=== PATIENT | female | born 1945 | race Native Hawaiian/Other Pacific Islander ===

== ENCOUNTER 2016-08-20 09:18 | Observation (INO) | payer OTHER ==
[~2016-08-20] VITALS: Ht 157.5 cm; Wt 84.5 kg
[2016-08-20] VITALS (11 sets, daily range): BP systolic 112–239; BP diastolic 55–126; TEMP 97.4–98; Ht 157.5 cm; Wt 84.5 kg
[2016-08-20 10:55] LABS: PLATELET COUNT 195 K/uL (152-353)
[2016-08-20 10:57] LABS: POTASSIUM 3.6 mmol/L (3.6-5.2); SODIUM 136 mmol/L (136-145)
[2016-08-20 11:06] LABS: PARTIAL THROMBOPLASTIN TIME 23.9 SECONDS (24.5-33.6)
[2016-08-20] MEDS ORDERED: HYDR25TA60 PO (17:02)
[2016-08-20] MEDS ORDERED: LOPRESSOR100 MG PO (17:02)
[2016-08-20] MEDS ORDERED: LEVO0.1T6 PO (17:02)
[2016-08-20] MEDS ORDERED: METFORMIN HCL500 M1 PO (17:03)
[2016-08-21] VITALS: BP 138/65; TEMP 97.6
[2016-08-21 01:36] LABS: PLATELET COUNT 158 K/uL (152-353)
[2016-08-21 02:02] LABS: POTASSIUM 3.6 mmol/L (3.6-5.2); SODIUM 141 mmol/L (136-145)
[2016-08-21 04:00] VITALS: BP 118/62; TEMP 97.6
[2016-08-21 08:00] VITALS: BP 170/82; TEMP 98
[2016-08-21 12:00] VITALS: BP 168/87; TEMP 98.2
== END 2016-08-21 17:11 | disposition short-term general hospital (02) ==
LOC: ED 09:18 → MED/SURG 11:15
PROVIDERS: Emergency Medicine
DX: I16.0 Hypertensive urgency (principal); R07.89 Other chest pain; E03.8 Other specified hypothyroidism; E11.9 Type 2 diabetes mellitus without complications
CPT/HCPCS: 36415; 80053; 81000; 82550; 82607; 82747; 82948; 83735; 84439; 84443; 84484; 85027; 85610; 85730; 86318; 93005; 93306; 96360; 96372; 99220; 99284; G0378; J1650; J3475

== ENCOUNTER 2017-04-23 08:49 | Outpatient (CLI) | payer OTHER ==
[~2017-04-23 08:49] MED LIST: HYDR25TA60 PO; LEVO0.1T6 PO; LOPRESSOR100 MG PO; METFORMIN HCL500 M1 PO
== END 2017-04-23 20:04 | disposition home or self-care (01) ==
LOC: MAMMO 08:49
DX: Z12.31 Encounter for screening mammogram for malignant neoplasm of breast (principal)

== ENCOUNTER 2017-05-29 14:23 | Outpatient (CLI) | payer OTHER ==
[2017-05-29 14:44] LABS: PLATELET COUNT 199 K/uL (152-353)
[2017-05-29 14:54] LABS: POTASSIUM 3.6 mmol/L (3.6-5.2)
== END 2017-05-30 14:23 | disposition home or self-care (01) ==
LOC: LAB 14:23
PROVIDERS: Nurse Practitioner Family
DX: I10 Essential (primary) hypertension (principal); E03.8 Other specified hypothyroidism; E11.9 Type 2 diabetes mellitus without complications; R53.83 Other fatigue
CPT/HCPCS: 80053; 80061; 82306; 82607; 83036; 84439; 84443; 85027

== ENCOUNTER 2018-07-08 08:36 | Outpatient (CLI) | payer OTHER | END 2018-07-08 20:14 | disposition home or self-care (01) | LOC: MAMMO 08:36 | DX: Z12.31 Encounter for screening mammogram for malignant neoplasm of breast (principal) ==

== ENCOUNTER 2018-09-30 08:29 | Outpatient (CLI) | payer OTHER ==
[2018-09-30 08:50] LABS: PLATELET COUNT 200 K/uL (152-353)
[2018-09-30 08:58] LABS: POTASSIUM 4.1 mmol/L (3.6-5.2)
== END 2018-09-30 23:24 | disposition home or self-care (01) ==
LOC: LABW 08:29 → CT 08:29
PROVIDERS: Nurse Practitioner Family
DX: R10.32 Left lower quadrant pain (principal)
CPT/HCPCS: 36415; 80053; 82150; 83690; 85027

== ENCOUNTER 2018-10-01 10:41 | Outpatient (CLI) | payer OTHER | END 2018-10-01 23:48 | disposition home or self-care (01) | LOC: US 10:41 | DX: R10.32 Left lower quadrant pain (principal) ==

== ENCOUNTER 2018-10-21 09:58 | Observation (INO) | payer OTHER ==
[2018-10-21] VITALS (8 sets, daily range): BP systolic 162–211; BP diastolic 72–99; TEMP 97.7–98.1; Ht 154.9 cm; Wt 82.8 kg
[~2018-10-21] VITALS: Ht 154.9 cm; Wt 82.8 kg
[2018-10-21 10:49] LABS: PLATELET COUNT 204 K/uL (152-353)
[2018-10-21 11:04] LABS: POTASSIUM 3.7 mmol/L (3.6-5.2); SODIUM 136 mmol/L (136-145)
[2018-10-21 11:52] LABS: PARTIAL THROMBOPLASTIN TIME 23.4 SECONDS (24.5-33.6)
[2018-10-21] MEDS ORDERED: COZAAR25 MG PO (11:54)
[2018-10-21] MEDS ORDERED: HYDR25TA60 PO (11:55)
[2018-10-21] MEDS ORDERED: GLIM2TAB PO (11:55)
[2018-10-21] MEDS ORDERED: KAPSPARGO SPRI100 MG PO (11:55)
--- NOTE | 2018-10-21 21:04 | NUR ---
10/21/18 AT 2020: KELSIE DEASIS BED COORDINATER AT [facility] IN [facility]. CALLED HERE AND STATED " NO BED WAS AVAILABLE IN NEURO DEPARTMENT AND WOULD CALL BACK IF ANY BECOME AVAILABLE." DR Dev ARAMBULA NOTIFIED OF SAME.
== END 2018-10-21 22:15 | disposition short-term general hospital (02) ==
LOC: ED 09:58 → MED/SURG 13:50
PROVIDERS: Family Medicine; ADMIT Family Medicine
DX: I63.59 Cerebral infarction due to unspecified occlusion or stenosis of other cerebral artery (principal); I10 Essential (primary) hypertension; E11.9 Type 2 diabetes mellitus without complications; E78.00 Pure hypercholesterolemia, unspecified; E86.0 Dehydration; E03.8 Other specified hypothyroidism; Z86.73 Personal history of transient ischemic attack (TIA), and cerebral infarction without residual deficits
CPT/HCPCS: 36415; 80053; 81000; 82550; 82553; 83036; 84484; 85027; 85610; 85730; 93005; 93306; 99220; 99284; G0378; J2060

== ENCOUNTER 2018-10-21 22:22 | Outpatient (CLI) | payer OTHER ==
[~2018-10-21 22:22] MED LIST changes: +COZAAR25 MG PO; +GLIM2TAB PO; +KAPSPARGO SPRI100 MG PO
== END 2018-10-21 23:31 | disposition short-term general hospital (02) ==
LOC: AMB 22:22
DX: R51 Headache (principal); I63.89 Other cerebral infarction; I69.854 Hemiplegia and hemiparesis following other cerebrovascular disease affecting left non-dominant side
CPT/HCPCS: A0425; A0429

== ENCOUNTER 2018-11-07 17:04 | Outpatient (CLI) | payer OTHER ==
[2018-11-07 18:38] LABS: PLATELET COUNT 256 K/uL (152-353)
[2018-11-07 19:05] LABS: POTASSIUM 3.3 mmol/L (3.6-5.2)
== END 2018-11-07 21:03 | disposition home or self-care (01) ==
LOC: LAB 17:04
PROVIDERS: Internal Medicine
DX: N28.89 Other specified disorders of kidney and ureter (principal)
CPT/HCPCS: 80053; 81000; 85027

== ENCOUNTER 2019-03-25 10:13 | Emergency (ER) | payer OTHER ==
[~2019-03-25] VITALS: Ht 157.5 cm; Wt 73.9 kg
[2019-03-25 10:54] LABS: PLATELET COUNT 180 K/uL (152-353)
[2019-03-25 10:59] LABS: POTASSIUM 3.3 mmol/L (3.6-5.2)
[2019-03-25 13:00] VITALS: BP 157/74; TEMP 97.7
== END 2019-03-25 13:00 | disposition home or self-care (01) ==
LOC: ED 10:13
PROVIDERS: Emergency Medicine
DX: J11.1 Influenza due to unidentified influenza virus with other respiratory manifestations (principal); E86.0 Dehydration; I48.91 Unspecified atrial fibrillation
CPT/HCPCS: 36415; 80053; 85027; 87502; 87651; 93005; 96360; 99284

== ENCOUNTER 2020-05-05 11:19 | Outpatient (CLI) | payer OTHER ==
[2020-05-05 12:24] LABS: PLATELET COUNT 232 K/uL (152-353)
[2020-05-05 14:12] LABS: POTASSIUM 3.5 mmol/L (3.6-5.2)
== END 2020-05-05 21:14 | disposition home or self-care (01) ==
LOC: LABW 11:19
PROVIDERS: ATTEND Nurse Practitioner Family
DX: R10.13 Epigastric pain (principal); R10.816 Epigastric abdominal tenderness; R63.0 Anorexia
CPT/HCPCS: 36415; 80053; 82150; 83690; 85027; 86677

== ENCOUNTER 2020-06-30 11:00 | Outpatient (CLI) | payer OTHER | END 2020-06-30 21:13 | disposition home or self-care (01) | LOC: CT 11:00 | PROVIDERS: ATTEND Nurse Practitioner Family | DX: E03.8 Other specified hypothyroidism (principal); E11.9 Type 2 diabetes mellitus without complications; E78.49 Other hyperlipidemia; I10 Essential (primary) hypertension; R53.1 Weakness ==

== ENCOUNTER 2020-08-09 07:49 | Outpatient (CLI) | payer OTHER | END 2020-08-09 22:02 | disposition home or self-care (01) | LOC: US 07:49 | PROVIDERS: ATTEND Nurse Practitioner Family | DX: E04.1 Nontoxic single thyroid nodule (principal) ==

== ENCOUNTER 2020-08-29 08:19 | Outpatient (CLI) | payer OTHER | END 2020-08-29 19:53 | disposition home or self-care (01) | LOC: LABW 08:19 | PROVIDERS: ATTEND Specialist | DX: I63.9 Cerebral infarction, unspecified (principal) | CPT/HCPCS: 36415; 81241; 83090; 85210; 85240; 85302; 85306; 85652; 86038; 86147 ==

== ENCOUNTER 2020-09-26 09:10 | Outpatient (CLI) | payer OTHER | END 2020-09-26 21:22 | disposition home or self-care (01) | LOC: MRI 09:10 | PROVIDERS: ATTEND Specialist | DX: G45.1 Carotid artery syndrome (hemispheric) (principal); I63.9 Cerebral infarction, unspecified | CPT/HCPCS: 36415; 82565; 84520; A9576 ==

== ENCOUNTER 2020-09-27 08:50 | Outpatient (CLI) | payer OTHER | END 2020-09-27 21:51 | disposition home or self-care (01) | LOC: MRI 08:50 | PROVIDERS: ATTEND Specialist | DX: G45.1 Carotid artery syndrome (hemispheric) (principal); I63.9 Cerebral infarction, unspecified ==

== ENCOUNTER 2020-10-25 08:24 | Emergency (ER) | payer OTHER ==
[~2020-10-25] VITALS: Ht 157.5 cm; Wt 73.9 kg
[2020-10-25 08:24] VITALS: TEMP 98
[2020-10-25 08:50] LABS: PLATELET COUNT 176 K/uL (152-353)
[2020-10-25 08:57] LABS: POTASSIUM 3.3 mmol/L (3.6-5.2)
[2020-10-25 09:06] LABS: PARTIAL THROMBOPLASTIN TIME 27.4 SECONDS (24.5-33.6)
[2020-10-25 10:57] VITALS: BP 166/71
== END 2020-10-25 10:57 | disposition home or self-care (01) ==
LOC: ED 08:24
PROVIDERS: Hospitalist
DX: S39.012A Strain of muscle, fascia and tendon of lower back, initial encounter (principal); Z86.73 Personal history of transient ischemic attack (TIA), and cerebral infarction without residual deficits; W01.0XXA Fall on same level from slipping, tripping and stumbling without subsequent striking against object, initial encounter; Y92.098 Other place in other non-institutional residence as the place of occurrence of the external cause
CPT/HCPCS: 80048; 85027; 85610; 85730; 96374; 99284; J1885; Q9963

== ENCOUNTER 2020-11-23 07:38 | Outpatient (CLI) | payer OTHER ==
[2020-11-23 08:07] LABS: PLATELET COUNT 302 K/uL (152-353)
[2020-11-23 08:15] LABS: POTASSIUM 3.7 mmol/L (3.6-5.2)
[2020-11-23 08:34] LABS: PARTIAL THROMBOPLASTIN TIME 24.1 SECONDS (24.5-33.6)
== END 2020-11-23 20:33 | disposition home or self-care (01) ==
LOC: LABW 07:38
PROVIDERS: ATTEND Neurological Surgery
DX: I65.02 Occlusion and stenosis of left vertebral artery (principal); D68.8 Other specified coagulation defects
CPT/HCPCS: 36415; 80053; 85027; 85610; 85730

== ENCOUNTER 2021-01-05 09:24 | Outpatient (CLI) | payer OTHER ==
[2021-01-05 09:59] LABS: PLATELET COUNT 269 K/uL (152-353)
== END 2021-01-05 18:54 | disposition home or self-care (01) ==
LOC: LABW 09:24
PROVIDERS: ATTEND Nurse Practitioner
DX: I10 Essential (primary) hypertension (principal); E11.8 Type 2 diabetes mellitus with unspecified complications; R10.84 Generalized abdominal pain; E78.49 Other hyperlipidemia; E03.8 Other specified hypothyroidism; E66.9 Obesity, unspecified; E55.9 Vitamin D deficiency, unspecified; R53.1 Weakness
CPT/HCPCS: 36415; 80053; 80061; 81000; 82330; 83036; 83735; 83970; 84100; 84439; 84443; 85027

== ENCOUNTER 2021-02-23 09:53 | Outpatient (CLI) | payer OTHER | END 2021-02-23 18:52 | disposition home or self-care (01) | LOC: MAMMO 09:53 | PROVIDERS: ATTEND Nurse Practitioner Family | DX: Z12.31 Encounter for screening mammogram for malignant neoplasm of breast (principal); Z13.820 Encounter for screening for osteoporosis; I10 Essential (primary) hypertension; E78.49 Other hyperlipidemia; E11.9 Type 2 diabetes mellitus without complications; E03.8 Other specified hypothyroidism; M54.89 Other dorsalgia; N95.8 Other specified menopausal and perimenopausal disorders ==

== ENCOUNTER 2021-06-09 09:07 | Outpatient (CLI) | payer OTHER | END 2021-06-09 19:51 | disposition home or self-care (01) | LOC: US 09:07 | PROVIDERS: ATTEND Nurse Practitioner Family | DX: Z01.89 Encounter for other specified special examinations (principal); E11.9 Type 2 diabetes mellitus without complications; Z86.79 Personal history of other diseases of the circulatory system; Z86.73 Personal history of transient ischemic attack (TIA), and cerebral infarction without residual deficits; I10 Essential (primary) hypertension; E78.49 Other hyperlipidemia; E03.8 Other specified hypothyroidism; N28.89 Other specified disorders of kidney and ureter; E55.9 Vitamin D deficiency, unspecified; G45.8 Other transient cerebral ischemic attacks and related syndromes; Z09 Encounter for follow-up examination after completed treatment for conditions other than malignant neoplasm ==

== ENCOUNTER 2021-07-13 08:50 | Outpatient (CLI) | payer OTHER | END 2021-07-13 21:56 | disposition home or self-care (01) | LOC: MRI 08:50 | PROVIDERS: ATTEND Neurological Surgery | DX: I65.02 Occlusion and stenosis of left vertebral artery (principal) ==

== ENCOUNTER 2021-07-14 08:54 | Outpatient (CLI) | payer OTHER | END 2021-07-14 18:54 | disposition home or self-care (01) | LOC: MRI 08:54 | PROVIDERS: ATTEND Neurological Surgery | DX: I65.02 Occlusion and stenosis of left vertebral artery (principal) ==

== ENCOUNTER 2021-07-31 09:56 | Outpatient (CLI) | payer OTHER | END 2021-07-31 18:51 | disposition home or self-care (01) | LOC: US 09:56 | PROVIDERS: ATTEND Nurse Practitioner Family | DX: E03.8 Other specified hypothyroidism (principal); R79.89 Other specified abnormal findings of blood chemistry ==

== ENCOUNTER 2021-08-21 08:21 | Outpatient (CLI) | payer OTHER | END 2021-08-21 18:58 | disposition home or self-care (01) | LOC: CT 08:21 | PROVIDERS: ATTEND Internal Medicine | DX: R10.84 Generalized abdominal pain (principal) | CPT/HCPCS: 36415; 82565; 84520; Q9963 ==

== ENCOUNTER 2022-04-27 12:33 | Outpatient (CLI) | payer OTHER | END 2022-04-27 19:26 | disposition home or self-care (01) | LOC: MRI 12:33 | PROVIDERS: ATTEND Nurse Practitioner Family | DX: R53.1 Weakness (principal) ==

== ENCOUNTER 2022-10-23 08:51 | Outpatient (CLI) | payer OTHER | END 2022-10-23 20:22 | disposition home or self-care (01) | LOC: MAMMO 08:51 | PROVIDERS: ATTEND Nurse Practitioner Family | DX: Z12.31 Encounter for screening mammogram for malignant neoplasm of breast (principal) ==